=== PATIENT | female | born 1990 | race Caucasian/White ===

== ENCOUNTER 2016-11-02 08:35 | Inpatient (IN) | payer BC, OTHER ==
[~2016-11-02] VITALS: Ht 154.9 cm; Wt 85.0 kg
[2016-11-11] MEDS ORDERED: LACTATED RINGERS 1,000 ML IV SCH (19:49)
[2016-11-11] MEDS ORDERED: OXYTOCIN 30U/ 0.9% NaCL 500ML 500 ML IV ONE (19:49)
[2016-11-11] MEDS ORDERED: MISOPROSTOL 25 MCG TABLET SL PRN (20:00)
[2016-11-11] MEDS ORDERED: SODIUM CHLORIDE FLUSH 10ML SYR IVF PRN (20:00)
[2016-11-11] MEDS ORDERED: PLEASE ENTER HEIGHT AND WEIGHT MC SCH (20:00)
[2016-11-11] MEDS ORDERED: FENTANYL PF 100 MCG/2ML IVPush PRN (20:00)
[2016-11-11] MEDS ORDERED: ONDANSETRON 2MG/ML, 2ML IVPush PRN (20:00)
[2016-11-11] MEDS ORDERED: LIDOCAINE 1%, 20ML ONE (20:14)
[2016-11-11] MEDS ORDERED: MISOPROSTOL 25 MCG TABLET ONE (20:14)
[2016-11-11] MEDS ORDERED: MISOPROSTOL 200 MCG TABLET ONE (20:14)
[2016-11-11] MEDS ORDERED: OXYTOCIN 30U/ 0.9% NaCL 500ML 500 ML ONE (20:14)
[2016-11-11] MEDS ORDERED: NEWBORN KIT ONE (20:14)
[2016-11-11] MEDS ORDERED: OXYTOCIN 30U/ 0.9% NaCL 500ML 500 ML IV PRN (23:46)
[2016-11-12] MEDS: D5%-LACTATED RINGERS 1,000 ML IV SCH (07:43)
[2016-11-12 07:59] VITALS: BP 139/83
[2016-11-12] MEDS ORDERED: FENTANYL PF 100 MCG/2ML ONE (10:18)
[2016-11-12] MEDS ORDERED: FENTANYL/BUPIV./NS/PF 250 ML EPIDCONT ONE (11:01)
[2016-11-12] MEDS ORDERED: LIDOCAINE/PF 1.5%-EPI 1:200K, 30ML ONE ×2 (11:01→11:36)
[2016-11-12] MEDS ORDERED: FENTANYL/BUPIV./NS/PF 250 ML EPIDCONT SCH (17:12)
[2016-11-12] MEDS ORDERED: LACTATED RINGERS 1,000 ML IVBOLUS PRN (17:30)
[2016-11-12] MEDS ORDERED: EPHEDRINE 50 MG/ML, 1ML IVPush PRN (17:30)
[2016-11-12] MEDS ORDERED: NALOXONE 0.4 MG/ML, 1ML IVPush PRN (17:30)
[2016-11-13] MEDS: LACTATED RINGERS 1,000 ML IV SCH ×6 (03:27→22:40)
[2016-11-13] MEDS ORDERED: OXYTOCIN 30U/ 0.9% NaCL 500ML 500 ML ONE (06:18)
[2016-11-13] MEDS ORDERED: FENTANYL/BUPIV./NS/PF 250 ML EPIDCONT ONE (07:24)
[2016-11-13] MEDS ORDERED: D5%-LACTATED RINGERS 1,000 ML IV SCH (09:00)
[2016-11-13] MEDS: D5%-LACTATED RINGERS 1,000 ML IV SCH (09:16)
[2016-11-13] MEDS ORDERED: OXYTOCIN 30U/ 0.9% NaCL 500ML 500 ML IV SCH (11:38)
[2016-11-13] MEDS ORDERED: LACTATED RINGERS 1,000 ML IV SCH ×2 (11:38→14:00)
[2016-11-13] MEDS ORDERED: METOCLOPRAMIDE 5 MG/ML, 2ML ONE (11:53)
[2016-11-13] MEDS ORDERED: SODIUM CITRATE/CITRIC ACID 30 ML UDC ONE (11:53)
[2016-11-13] MEDS ORDERED: LACTATED RINGERS 1,000 ML IVBOLUS ONE (12:00)
[2016-11-13] MEDS ORDERED: METOCLOPRAMIDE 5 MG/ML, 2ML IV ONE (12:00)
[2016-11-13] MEDS ORDERED: SODIUM CITRATE/CITRIC ACID 30 ML UDC PO ONE (12:00)
[2016-11-13] MEDS: OXYTOCIN 30U/ 0.9% NaCL 500ML 500 ML IV SCH ×2 (12:40→22:40)
[2016-11-13] MEDS ORDERED: LIDOCAINE/MPF 2%-EPI 1:200K, 20 ML ONE (12:40)
[2016-11-13] MEDS ORDERED: KETOROLAC 30 MG/1 ML ONE (12:44)
[2016-11-13] MEDS ORDERED: ONDANSETRON 2MG/ML, 2ML ONE (12:44)
[2016-11-13] MEDS ORDERED: CEFAZOLIN 1,000 MG ONE (12:44)
[2016-11-13] MEDS ORDERED: KETOROLAC 30 MG/1 ML IM SCH (13:00)
[2016-11-13] MEDS ORDERED: ONDANSETRON 2MG/ML, 2ML IV PRN (13:00)
[2016-11-13] MEDS ORDERED: ACETAMINOPHEN 325 MG TABLET PO PRN (13:00)
[2016-11-13] MEDS ORDERED: OXYcodone/APAP 5/325MG TABLET PO PRN (13:00)
[2016-11-13] MEDS ORDERED: SIMETHICONE 80 MG CHEW TAB PO PRN (13:00)
[2016-11-13] MEDS ORDERED: METOCLOPRAMIDE 5 MG/ML, 2ML IV PRN (13:00)
[2016-11-13] MEDS ORDERED: IBUPROFEN 600 MG TABLET PO PRN (13:00)
[2016-11-13] MEDS ORDERED: CALCIUM CARBONATE 500 MG TAB.CHEW PO PRN (13:00)
[2016-11-13] MEDS ORDERED: HYDROmorphone 2 MG/ML, 1ML ONE (13:14)
[2016-11-13 15:15] VITALS: BP 121/71
[2016-11-13 19:00] VITALS: BP 129/85
[2016-11-13] MEDS ORDERED: KETOROLAC 30 MG/1 ML IVPush SCH (20:00)
[2016-11-14] VITALS: BP 116/74
[2016-11-14] MEDS: OXYcodone/APAP 5/325MG TABLET PO PRN ×2 (00:42→22:19)
[2016-11-14 04:12] VITALS: BP 111/66
[2016-11-14] MEDS: LACTATED RINGERS 1,000 ML IV SCH ×5 (04:40→20:40)
[2016-11-14 08:40] VITALS: BP 103/68
[2016-11-14] MEDS: OXYTOCIN 30U/ 0.9% NaCL 500ML 500 ML IV SCH ×2 (08:40→18:40)
[2016-11-14] MEDS: PRENATAL VIT/IRON/FA 1 EACH TABLET PO SCH (08:54)
[2016-11-14] MEDS: DOCUSATE 100 MG CAPSULE PO PRN ×2 (08:54→22:19)
[2016-11-14] MEDS: IBUPROFEN 600 MG TABLET PO PRN ×3 (09:08→22:19)
[2016-11-14] MEDS: OXYcodone/APAP 10/325MG TABLET PO PRN ×3 (09:08→18:23)
[2016-11-14 12:00] VITALS: BP 117/78
[2016-11-14 16:00] VITALS: BP 108/72
[2016-11-14 20:18] VITALS: BP 116/70
[2016-11-15] MEDS: OXYcodone/APAP 5/325MG TABLET PO PRN ×3 (04:12→16:43)
[2016-11-15] MEDS: IBUPROFEN 600 MG TABLET PO PRN ×3 (04:13→16:45)
[2016-11-15] MEDS: OXYTOCIN 30U/ 0.9% NaCL 500ML 500 ML IV SCH (04:40)
[2016-11-15] MEDS: LACTATED RINGERS 1,000 ML IV SCH ×2 (04:40)
[2016-11-15 07:20] VITALS: BP 135/90
[2016-11-15] MEDS ORDERED: DOCU-30 PO (08:26)
[2016-11-15] MEDS ORDERED: IBUP-1222 PO (08:26)
[2016-11-15] MEDS ORDERED: OXYC-302 PO (08:27)
[2016-11-15] MEDS: PRENATAL VIT/IRON/FA 1 EACH TABLET PO SCH (08:46)
[2016-11-15] MEDS: DOCUSATE 100 MG CAPSULE PO PRN (08:46)
[2016-11-15] MEDS ORDERED: IBUPROFEN 600 MG TABLET PO PRN (20:00)
== END 2016-11-15 18:34 | disposition home or self-care (01) | DRG 766 ==
LOC: LDIP 11-11 19:18 → 2NW 11-13 15:14
PROVIDERS: ADMIT Obstetrics & Gynecology; ATTEND Obstetrics & Gynecology
PROC: 10D00Z1 Extraction of Products of Conception, Low, Open Approach (ICD-10-PCS; principal; 2016-11-13)
DX: O42.02 Full-term premature rupture of membranes, onset of labor within 24 hours of rupture (principal); O48.0 Post-term pregnancy; O32.4XX0 Maternal care for high head at term, not applicable or unspecified; D64.9 Anemia, unspecified; O62.1 Secondary uterine inertia; O63.1 Prolonged second stage (of labor); O90.81 Anemia of the puerperium; Z37.0 Single live birth; Z3A.41 41 weeks gestation of pregnancy
CPT/HCPCS: 36415; 85025; 86850; 86900; J0690; J1170; J1885; J2405; J3010; J3490; J2590; J7120; J7121

== ENCOUNTER 2020-11-29 10:19 | Emergency (ER) | payer BC, OTHER ==
[~2020-11-29] VITALS: Ht 154.9 cm; Wt 78.7 kg
[~2020-11-29 10:19] MED LIST: DOCU-131 PO; IBUP-1222 PO; OXYC1TAB14 PO
[2020-11-29 11:05] VITALS: BP 112/72
--- NOTE | 2020-11-29 11:06 | NUR ---
PT WITH C/O CHEST PRESSURE SINCE TUESDAY, PT STATES WAS DEALING WITH A VERY STRESSFULL EVENT AT WORK WHEN THE PRESSURE BEGAN. PT DESCRIBES INTERMITTANT, STATES SHE HAS ALSO FELT MORE FATIGUED THAN USUAL. PT WITH LINGERING TIGHTNESS THIS AM. PT TO BP, CARD, CONT PULSE OX. LAB IN TO DRAW PT AT THIS TIME, NO OTHER NEEDS EXPRESSED AT THIS TIME
[2020-11-29 11:27] LABS: ALBUMIN 3.9 g/dL (3.4-5.0); ANION GAP 4 mmol/L (5-15); CALCIUM 8.7 mg/dL (8.5-10.1); CHLORIDE 110 mmol/L (98-107)
[2020-11-29 11:32] LABS: ALANINE AMINOTRANSFERASE 22 U/L (12-78); ALKALINE PHOSPHATASE 77 U/L (45-117); BILIRUBIN,TOTAL 0.4 mg/dL (0.2-1.0); CREATININE 0.72 mg/dL (0.55-1.02); TOTAL PROTEIN 7.7 g/dL (6.4-8.2); TROPONIN I < 0.015 ng/mL (0.000-0.045)
[2020-11-29 11:43] LABS: BASOPHILS % (AUTO) 0 % (0-1); EOSINOPHILS % (AUTO) 1 % (1-7); LYMPHOCYTES % (AUTO) 22 % (22-44); MEAN CORPUSCULAR HEMOGLOBIN 29.6 pg (27.0-34.8); MEAN CORPUSCULAR HGB CONC 34.6 g/dL (32.4-35.8); MONOCYTES % (AUTO) 6 % (2-9); NEUTROPHILS % (AUTO) 71 % (42-75); PLATELET COUNT 271 x10^3/uL (130-400); RED BLOOD COUNT 4.75 x10^6/uL (3.82-5.3); RED CELL DISTRIBUTION WIDTH 13.4 % (9.6-15.2)
[2020-11-29 11:44] LABS: MD NO
== END 2020-11-29 12:11 | disposition home or self-care (01) ==
LOC: ED 12:05
DX: R07.89 Other chest pain (principal)
CPT/HCPCS: 36415; 71045; 80053; 83690; 84484; 85025; 93005; 99285